=== PATIENT | female | born 1990 | race Caucasian/White ===

== ENCOUNTER → 2020-06-18 | Outpatient (CLI) | payer OTHER ==
[~2020-06-18] MED LIST: AMOXICILLIN 8751 TAB PO; BCP TD; BIRTH CONTROL PILL; CEPHALEXIN500 M1 PO; CHERATUSSIN AC480 ML PO; FERROUS SU325 MG/TAB PO; IBU800 M1 PO; LORTAB 5/500 501 TAB PO; MOTRIN 600600 MG/TAB PO; MVI; NORCO 325 MG-7.1 TAB PO; PHENERGAN 25 TA25 MG PO; PRENATAL VITAMI1 T12 PO; RELAFEN 50500 MG/TAB PO; ROXICODONE 55 MG/TAB PO; TRI-SPRINTEC 281 TAB PO; [UNRECOGNIZED DRUG - OTHER]
--- NOTE | 2020-06-18 15:12 | NUR ---
Mailed pt copies of sample carb controlled menu, snack ideas, Behavioral change sheet, and initial education folder.
== END ==
LOC: DIA.EDTELE 05:24 → DIA.ED 09:03 → DIA.EDTELE 09:36 → DIA.ED 14:39
DX: O24.419 Gestational diabetes mellitus in pregnancy, unspecified control (principal)
CPT/HCPCS: G0108

== ENCOUNTER → 2020-07-02 | Outpatient (CLI) | payer OTHER | LOC: DIA.EDTELE 09:08 | DX: O24.410 Gestational diabetes mellitus in pregnancy, diet controlled (principal) | CPT/HCPCS: G0108 ==

== ENCOUNTER → 2020-07-13 | Outpatient (CLI) | payer OTHER | LOC: DIA.EDTELE 13:23 | DX: O24.419 Gestational diabetes mellitus in pregnancy, unspecified control (principal) | CPT/HCPCS: G0108 ==

== ENCOUNTER 2020-08-05 22:49 | Outpatient (CLI) | payer OTHER ==
[~2020-08-05] VITALS: Ht 175.3 cm; Wt 84.1 kg
[~2020-08-05 22:49] MED LIST changes: -FERROUS SU325 MG/TAB PO; -IBU800 M1 PO
--- NOTE | 2020-08-05 23:00 | NUR ---
G2L1 at 36 weeks and 6 days arrives to unit by wheelchair with complaint of contractions every 2-3 minutes starting around 2100. Pt reports feeling good movement, denies vaginal bleeding or LOF. Pt denies headaches, blurry vision, or RUQ pain. Clean gown on. Oriented to room, bed in low and locked position, call light within reach. Pt has history of GDM this and has been diet controlled. US and toco explained and applied. Vital signs obtained. Admission assessment started. SVE 350/-3, vertex position, membranes intact.
[2020-08-05 23:30] VITALS: BP 126/81; PULSE 86; TEMP 98
--- NOTE | 2020-08-06 00:05 | NUR ---
SVE unchanged from previous exam. Reviewed discharge plan with patient, verbalized understanding. 0015 - Discharge instructions reviewed with patient. Pt seen ambulating off unit with spouse.
== END 2020-08-06 00:15 | disposition home or self-care (01) ==
LOC: LDRO 22:49 → LDR 23:18 → LDRO 08-06 00:15
DX: O62.9 Abnormality of forces of labor, unspecified (principal); Z3A.36 36 weeks gestation of pregnancy
CPT/HCPCS: OP

== ENCOUNTER 2020-08-10 14:17 | Outpatient (CLI) | payer OTHER ==
[~2020-08-10] VITALS: Ht 175.3 cm; Wt 85.0 kg
--- NOTE | 2020-08-10 14:20 | NUR ---
1420- 37.4, G2L1 here with c/o back pain (more left sided), pelvic pressure, and decreased movement. Pt state she has felt more movement since coming to L&D. Denies any regular contractions, VB, or LOF. To LDR6 via wheelchair. 1425- EFM explained and placed. Tracing well. 1430- SVE by this RN /-3. Assessment completed. VS obtained. 1452- Dr. Jiménez updated on patient. See physician notification.
[2020-08-10 15:00] VITALS: BP 122/80; PULSE 93; TEMP 98.1
[2020-08-10 15:12] LABS: COLLECTION METHOD CLEAN CATCH
[2020-08-10 15:18] LABS: PH 6 (5-8); SQUAMOUS EPITHELIAL 0-2 /hpf; URINE APPEARANCE Hazy; URINE BACTERIA Rare /hpf; URINE BILIRUBIN Negative (NEGATIVE); URINE BLOOD Negative (NEGATIVE); URINE COLOR Yellow; URINE GLUCOSE Negative (NEGATIVE); URINE KETONE Trace (NEGATIVE); URINE LEUKOCYTE ESTERASE 1+ (NEGATIVE); URINE NITRATE Negative (NEGATIVE); URINE PROTEIN(semi-quant) Negative (NEGATIVE); URINE RBC 0-2 /hpf; URINE UROBILINOGEN Negative (NEGATIVE)
[2020-08-10 15:24] VITALS: BP 120/77; PULSE 85
--- NOTE | 2020-08-10 15:36 | NUR ---
Discharge instructions reviewed. Patient and spouse verbalize understanding. Ambulatory off unit.
== END 2020-08-10 15:36 | disposition home or self-care (01) ==
LOC: LDRO 14:17
PROVIDERS: Obstetrics & Gynecology
DX: O36.8130 Decreased fetal movements, third trimester, not applicable or unspecified (principal); O99.891 Other specified diseases and conditions complicating pregnancy; M54.9 Dorsalgia, unspecified; Z3A.37 37 weeks gestation of pregnancy

== ENCOUNTER 2020-08-24 06:24 | Inpatient (IN) | payer OTHER ==
[2020-08-24] VITALS (32 sets, daily range): BP systolic 105–156; BP diastolic 60–87; PULSE 61–98; TEMP 97.7–98.2
[~2020-08-24] VITALS: Ht 175.3 cm; Wt 84.1 kg
--- NOTE | 2020-08-24 06:30 | NUR ---
PATIENT HERE TO LR4 FOR INDUCTION. HERE WITH . PATIENT CHANGED INTO GOWN, ON EFM, ASSESMENT COMPLETE, IV STARTED, CONSENTS SIGNED. PATIENT DENIES LEAKING OF FLUID, CONTRACTIONS OR BLEEDING. PATIENT IS GESTATIONAL DIABETIC, DIET CONTROLLED. BLOOD SUGAR OBTAINED. PATIENT HERE WITH , AMY.
[2020-08-24 07:24] LABS: HEMOGLOBIN 12.5 g/dl (12.5-16.0); MEAN CELL VOLUME 86 fl (80.0-100.0); MEAN CORPUSCULAR HEMOGLOBIN 30 pg (27.0-31.0); MEAN CORPUSCULAR HGB CONC 35 g/dl (33.0-37.0); MEAN PLATELET VOLUME 11.8 fl (7.4-10.4); PLATELET COUNT 188 K/mm3 (130-400); RED BLOOD COUNT 4.18 M/mm3 (4.10-5.30); REDCELL DISTRIBUTION WIDTH-CV 13.4 % (11.5-14.5)
[2020-08-24 07:25] LABS: HEMATOCRIT 36.1 % (37.0-47.0)
[2020-08-24 08:06] LABS: BAND 3 % (0-10); LYMPHOCYTE 24 % (20.0-51.0); NEUTROPHILS 68 % (42.0-75.2); PLATELET ESTIMATE NORMAL (NORMAL)
--- NOTE | 2020-08-24 12:50 | NUR ---
1125- THIS NURSE AT BEDSIDE. SVE PREFORMED, PIT OFF, OXYGEN MASK ON. PATIENT REPOSITIONED X4, TO KNEE CHEST AT 1136. FSE PLACED BY TRUNG ULLOA AT 1145. LYDIA CARE PREFORMED. 1155- PATIENT PUSHING 1156 VACUUM ON, EPIS CUT 1157- VAC ASSISTED DELIVERY AT THIS TIME BR DR NELSON. TO MOTHERS CHEST IN CARE OF TRUNG ACKERMAN. FOB CUT CORD. PLACENTA DELIVERED AT 1200. FUNDAL MASSAGE PROVIDED. OXYTOCIN AT 333MLS/ HR, 4TH DEGREE REPAIRED BY DR NELSON. METHERGINE GIVEN IM ICE PACK TO PERINEUM RECOVERY STARTED AT 1215.
--- NOTE | 2020-08-24 21:05 | NUR ---
Parents show concern about baby eating enough from breast. Will reassess after BG. Discussed wanting to try a half ounce of formula.
[2020-08-25 03:31] VITALS: BP 116/69; PULSE 92; TEMP 98
[2020-08-25 08:01] LABS: BASO % 0.2 % (0.0-2.0); EOS # 0.1 (0.0-0.7); EOS % 0.4 % (0-4.0); GRAN # 11.1 (1.4-6.5); LYMPH # 1.4 (1.2-3.4); MEAN CELL VOLUME 87 fl (80.0-100.0); MEAN CORPUSCULAR HGB CONC 34 g/dl (33.0-37.0); MEAN PLATELET VOLUME 11.1 fl (7.4-10.4); MONO # 0.9 (0.1-0.6); MONO % 6.4 % (1.7-9.3); PLATELET COUNT 165 K/mm3 (130-400); RED BLOOD COUNT 3.31 M/mm3 (4.10-5.30); REDCELL DISTRIBUTION WIDTH-CV 13.6 % (11.5-14.5)
[2020-08-25 08:05] LABS: HEMATOCRIT 28.7 % (37.0-47.0); HEMOGLOBIN 9.8 g/dl (12.5-16.0); MEAN CORPUSCULAR HEMOGLOBIN 30 pg (27.0-31.0)
[2020-08-25 08:22] VITALS: BP 122/68; PULSE 76; TEMP 98.4
--- NOTE | 2020-08-25 10:58 | NUR ---
Initial visit; Parents thanked [employer] for offering congratulations and God's blessings for the of their son. [employer] thanked family for choosing [facility].
--- NOTE | 2020-08-25 15:38 | NUR ---
1500 PATIENT MOVE TO ROOM 207. SITZ BATH DONE AT THIS TIME AND PATIENT STATES FELT WELL. TO SHOWER TOLERATES WELL. DENIES NEEDS AT THIS TIME. RESTING ON RIGHT SIDE
[2020-08-25 19:35] VITALS: BP 120/71; PULSE 89; TEMP 98
[2020-08-26 04:36] VITALS: BP 11/70; PULSE 86; TEMP 97.8
[2020-08-26 08:15] VITALS: BP 120/79; PULSE 94; TEMP 98.3
[2020-08-26] MEDS ORDERED: FERROUS SU325 MG/TAB PO (11:34)
[2020-08-26] MEDS ORDERED: IBU800 M1 PO (11:34)
--- NOTE | 2020-08-26 12:45 | NUR ---
DISCHARGE TEACHING COMPLETED. PATIENT EDUCATED ON FOLLOW UP APPOINTMENTS AND MEDICATIONS. QUESTIONS INVITED AND ANSWERED.
== END 2020-08-26 13:20 | disposition home or self-care (01) | DRG 768 ==
LOC: OB 06:24 → LDR 06:24 → OB 14:45
PROVIDERS: ADMIT Student in an Organized Health Care Education/Training Program
PROC: 10D07Z6 Extraction of Products of Conception, Vacuum, Via Natural or Artificial Opening (ICD-10-PCS; principal; 2020-08-24)
PROC: 0DQP0ZZ Repair Rectum, Open Approach (ICD-10-PCS; 2020-08-24)
PROC: 0W8NXZZ Division of Female Perineum, External Approach (ICD-10-PCS; 2020-08-24)
PROC: 3E033VJ Introduction of Other Hormone into Peripheral Vein, Percutaneous Approach (ICD-10-PCS; 2020-08-24)
DX: O24.420 Gestational diabetes mellitus in childbirth, diet controlled (principal); Z37.0 Single live birth; O70.3 Fourth degree perineal laceration during delivery; D62 Acute posthemorrhagic anemia; O76 Abnormality in fetal heart rate and rhythm complicating labor and delivery; O43.193 Other malformation of placenta, third trimester; O71.89 Other specified obstetric trauma; O99.03 Anemia complicating the puerperium; Z3A.39 39 weeks gestation of pregnancy
CPT/HCPCS: J2210; J2590; J7120